=== PATIENT | female | born 1955 | race Caucasian/White ===

== ENCOUNTER 2019-08-19 10:00 | Inpatient (IN) | payer MEDICAID ==
[~2019-08-19] VITALS: Ht 167.6 cm; Wt 71.4 kg
[~2019-08-19 10:00] MED LIST: ASPI-231 PO; FLUO-125
[2019-08-19 10:41] LABS: Hematocrit 39.7 % (36.0-46.0); Hemoglobin 13.4 g/dL (12.2-16.2); Mean Corpuscular Hemoglobin 33.3 pg (28.0-32.0); Mean Corpuscular Hgb Conc. 33.7 g/dL (32.0-36.0); Mean Corpuscular Volume 98.6 fL (80.0-100.0); Platelet Count (auto) 299 10^3/uL (140-450); Red Blood Cells 4.02 10^6/uL (4.0-5.20); Red Cell Distribution Width 14.3 % (11.8-14.3); White Blood Cell 15.6 10^3/uL (4.4-10.8)
[2019-08-19 10:46] LABS: Calcium 8.8 mg/dL (8.5-10.1)
[2019-08-19 10:51] LABS: BUN/Creatinine Ratio 22.3; Bilirubin, Total 0.3 mg/dL (0.2-1.0); Total Protein 7.4 g/dL (6.4-8.2)
[2019-08-19 10:53] LABS: INR 0.94 (0.9-1.15); Partial Thromboplastin Time 23.4 sec (23.64-32.05)
[2019-08-19 10:55] LABS: Basophils % (manual) 0 (0.0-2.0); Blast Cells 0; Eosinophils % (manual) 0 (0-7); Metamyelocytes % 0; Myelocytes % 0; Promyelocytes % 0; Reactive Lymphocytes 0
[2019-08-19 11:26] LABS: Band Neutrophils % (manual) 1; Lymphocytes % (manual) 9 (10.0-50.0); Monocytes % (manual) 7 (0-12)
[2019-08-19] MEDS ORDERED: PROMETHAZINE HCL 25 MG/ML 1ML IV PRN (12:30)
[2019-08-19] MEDS ORDERED: LEVOFLOXACIN 500MG 100 ML IV ONE (12:30)
[2019-08-19] MEDS ORDERED: MORPHINE SULF INJ 2 MG/ML SYRINGE 1ML IV PRN (12:30)
[2019-08-19] MEDS ORDERED: LACTULOSE 20Gm/30ML SOLN PO PRN (12:30)
[2019-08-19] MEDS ORDERED: chlordiazePOXIDE HCL 5 MG CAP PO ONE (12:30)
[2019-08-19] MEDS ORDERED: ALBUTEROL SULF 2.5 MG/0.5ML(0.5%) NEB SOLN NEB PRN (12:30)
[2019-08-19] MEDS ORDERED: THIAMINE 100mg/ml INJ (200mg/2ml VIAL) IV ONE (12:30)
[2019-08-19] MEDS ORDERED: ACETAMINOPHEN 500 MG TAB PO PRN (12:30)
[2019-08-19] MEDS ORDERED: NITROGLYCERIN 0.4 MG SL TAB SL PRN (12:30)
[2019-08-19] MEDS ORDERED: hydrALAZINE HCL 20 MG/ML VL IV PRN (12:45)
[2019-08-19] MEDS ORDERED: CARVEDILOL 3.125 MG TAB PO ONE (12:45)
[2019-08-19] MEDS: SODIUM CHLORIDE 0.9% 1,000 ML IV SCH ×2 (13:12→23:00)
[2019-08-19] MEDS: CLINDAMYCIN 600MG IV 50 ML IV SCH ×2 (14:23→22:57)
--- NOTE | 2019-08-19 15:50 | NUR ---
Received report from ER Nurse. Waiting for patient to be transferred to Room 297B. Paged Dr. Everett.
--- NOTE | 2019-08-19 15:55 | NUR ---
Dr. Everett called back. made aware patient has no Diet order. I already got a report from ER Nurse, waiting for patient to be transferred to Room 297B. Dr. Everett ordered Regular Diet.
[2019-08-19 16:20] VITALS: BP 150/85
--- NOTE | 2019-08-19 16:20 | NUR ---
Left knee with ANALIA wrap, clean dry and intact. Patient stated she had left knee arthroscopy two days ago at surgical center in [place].
--- NOTE | 2019-08-19 16:20 | NUR ---
Telemetry admit from ER DANIEL AREVALO admitted to Telemetry unit after SBAR received. Patient oriented to Vera Krishnamurthy RN, unit, room, bed, and unit policies regarding patient care and visiting hours. Patient now on continuous telemetry monitoring, tele box # [id number] and telemetry reading on arrival to unit is 85. Patient placed on bedside oxygen at 4 LPM, weighed by bed scale and encouraged to call if she needs something. All questions and concerns addressed, patient verbalized understanding. Note: Patient is awake, oriented x4, wheezing noted. Bed side commode provided.
[2019-08-19 17:00] VITALS: BP 150/85
--- NOTE | 2019-08-19 17:00 | NUR ---
Patient has own medications from home at bedside. Explained to patient that own medications not allowed at bedside, if it's okay with her if I can take the medications to the Pharmacy and it will be returned to her on day of Discharge. Patient said she has a bottle of Oxycodone in her bag. Checked the POM, no bottle of Oxycodone included in the bag. Patient said she may have forgotten to bring it.
[2019-08-19] MEDS: methylPREDNISolone SOD SUCC 40 MG/ML VL IV SCH ×2 (17:27→23:01)
[2019-08-19] MEDS: traMADol HCL 50 MG TAB PO PRN (17:51)
[2019-08-19] MEDS: chlordiazePOXIDE HCL 25 MG CAP PO PRN (17:51)
--- NOTE | 2019-08-19 17:51 | NUR ---
Patient stated her pain level at 5/10 at this time. Patient refused Tylenol. Ultram PO given for pain.
--- NOTE | 2019-08-19 17:51 | NUR ---
Hand tremors noted. Librium PO given.
[2019-08-19] MEDS: chlordiazePOXIDE HCL 5 MG CAP PO SCH (18:00)
[2019-08-19] MEDS: IPRATROPIUM BROM 0.5 MG/2.5ML INH SOL NEB SCH (18:34)
[2019-08-19] MEDS: ALBUTEROL SULF 2.5 MG/0.5ML(0.5%) NEB SOLN NEB SCH (18:34)
[2019-08-19 22:35] VITALS: BP 154/88
[2019-08-19 22:39] VITALS: BP 154/88
[2019-08-19] MEDS: CARVEDILOL 3.125 MG TAB PO SCH (22:59)
[2019-08-20] MEDS: IPRATROPIUM BROM 0.5 MG/2.5ML INH SOL NEB SCH ×5 (00:36→23:56)
[2019-08-20] MEDS: ALBUTEROL SULF 2.5 MG/0.5ML(0.5%) NEB SOLN NEB SCH ×5 (00:37→23:56)
[2019-08-20 05:55] VITALS: BP 151/87
[2019-08-20] MEDS: CLINDAMYCIN 600MG IV 50 ML IV SCH ×2 (06:50→14:19)
[2019-08-20] MEDS: chlordiazePOXIDE HCL 5 MG CAP PO SCH ×5 (06:51→22:55)
[2019-08-20] MEDS: methylPREDNISolone SOD SUCC 40 MG/ML VL IV SCH ×3 (06:51→22:55)
--- NOTE | 2019-08-20 08:00 | NUR ---
Patient in bed, asleep, no acute distress noted. ANALIA wrap band on left knee clean, dry and intact.
[2019-08-20] MEDS: SODIUM CHLORIDE 0.9% 1,000 ML IV SCH ×2 (08:15→17:30)
[2019-08-20] MEDS ORDERED: CAR3125T PO (08:35)
[2019-08-20] MEDS ORDERED: TEMA30CA PO (08:35)
[2019-08-20] MEDS ORDERED: NAP500T PO (08:35)
[2019-08-20 09:00] VITALS: BP 168/111
[2019-08-20] MEDS: ENOXAPARIN SOD 40 MG/0.4 ML SYRINGE SC SCH (09:56)
[2019-08-20] MEDS: THIAMINE 100mg/ml INJ (200mg/2ml VIAL) IV SCH (09:56)
[2019-08-20] MEDS: CARVEDILOL 3.125 MG TAB PO SCH ×2 (09:57→22:56)
[2019-08-20] MEDS: PANTOPRAZOLE 40 MG TAB PO SCH (09:57)
[2019-08-20] MEDS ORDERED: LEVOFLOXACIN 500MG 100 ML IV SCH (10:00)
--- NOTE | 2019-08-20 12:00 | NUR ---
Patient awake, oriented x4, No acute distress noted.
[2019-08-20 13:00] VITALS: BP 151/116
[2019-08-20] MEDS ORDERED: LEVOFLOXACIN 250MG 50 ML IV ONE (15:15)
[2019-08-20] MEDS ORDERED: MULTIPLE VITAMINS W/ MINERALS TAB PO ONE (15:30)
[2019-08-20] MEDS ORDERED: amLODIPine BESYLATE 5 MG TAB PO ONE (15:30)
[2019-08-20] MEDS ORDERED: FOLIC ACID 1 MG TAB PO ONE (15:30)
[2019-08-20 17:00] VITALS: BP 132/75
--- NOTE | 2019-08-20 20:15 | NUR ---
Pt is resting in bed with resp rate even and unlabored. No s/s of any distress noted at this time. POC discussed with pt and pt verbalizes understanding. Bed is low, wheels are locked, and call light is with in reach.
[2019-08-20 22:00] VITALS: BP 124/67
[2019-08-21] MEDS: TEMAZEPAM 15 MG CAP PO PRN ×2 (00:18→22:50)
[2019-08-21] MEDS: traMADol HCL 50 MG TAB PO PRN ×3 (00:19→22:50)
[2019-08-21 05:00] VITALS: BP 148/89
[2019-08-21 05:46] LABS: Basophils # (auto) 0 uL; Basophils % (auto) 0.1 % (0.0-2.0); Eosinophils # (auto) 0 uL; Lymphocytes # (auto) 1.1 uL; Lymphocytes % (auto) 9.3 % (10.0-50.0); Mean Corpuscular Hemoglobin 33.4 pg (28.0-32.0); Mean Corpuscular Hgb Conc. 34.2 g/dL (32.0-36.0); Mean Corpuscular Volume 97.6 fL (80.0-100.0); Monocytes % (auto) 8.4 % (0.0-12.0); Neutrophils # (auto) 10.1 uL; Neutrophils % (auto) 82.2 % (37.0-80.0); Nucleated Red Blood Cells % 0.1 %; Platelet Count (auto) 280 10^3/uL (140-450); Red Blood Cells 3.58 10^6/uL (4.0-5.20); Red Cell Distribution Width 13.8 % (11.8-14.3); White Blood Cell 12.3 10^3/uL (4.4-10.8)
[2019-08-21] MEDS: chlordiazePOXIDE HCL 5 MG CAP PO SCH ×4 (06:08→22:51)
[2019-08-21 06:10] LABS: Albumin 2.8 g/dL (3.4-5.0); Calcium 8.4 mg/dL (8.5-10.1); Potassium 4.4 mmol/L (3.5-5.1)
[2019-08-21 06:14] LABS: BUN/Creatinine Ratio 38.5; Bilirubin, Total 0.3 mg/dL (0.2-1.0); Total Protein 5.9 g/dL (6.4-8.2)
[2019-08-21] MEDS: IPRATROPIUM BROM 0.5 MG/2.5ML INH SOL NEB SCH ×3 (06:26→19:56)
[2019-08-21] MEDS: ALBUTEROL SULF 2.5 MG/0.5ML(0.5%) NEB SOLN NEB SCH ×3 (06:26→19:56)
[2019-08-21] MEDS: SODIUM CHLORIDE 0.9% 1,000 ML IV SCH (07:55)
[2019-08-21 09:12] VITALS: BP 160/93
[2019-08-21] MEDS: methylPREDNISolone SOD SUCC 40 MG/ML VL IV SCH ×2 (09:12→22:49)
[2019-08-21] MEDS: THIAMINE 100mg/ml INJ (200mg/2ml VIAL) IV SCH (09:12)
[2019-08-21] MEDS: LEVOFLOXACIN 750MG 150 ML IV SCH (09:12)
[2019-08-21] MEDS: FOLIC ACID 1 MG TAB PO SCH (09:13)
[2019-08-21] MEDS: ENOXAPARIN SOD 40 MG/0.4 ML SYRINGE SC SCH (09:13)
[2019-08-21] MEDS: PANTOPRAZOLE 40 MG TAB PO SCH (09:13)
[2019-08-21] MEDS: MULTIPLE VITAMINS W/ MINERALS TAB PO SCH (09:14)
[2019-08-21] MEDS: amLODIPine BESYLATE 5 MG TAB PO SCH (09:15)
[2019-08-21] MEDS: CARVEDILOL 3.125 MG TAB PO SCH ×2 (09:15→22:50)
--- NOTE | 2019-08-21 10:20 | NUR ---
MIDLINE REMOVED FROM LEFT UPPER ARM PATIENT COMPLAINED OF BURNING WHEN FLUSHED. MIDLINE REMOVED CATHETER INTACT. NEW IV STARTED 22G IN LEFT FOREARM. PATIENT TOLERATED WELL Addendum: 08/21/19 at 1022 by JONEL CHUNG RN RN MIDLINE REMOVED FROM RIGHT UPPER ARM PATIENT COMPLAINED OF BURNING WHEN FLUSHED. MIDLINE REMOVED CATHETER INTACT. NEW IV STARTED 22G IN RIGHT FOREARM. PATIENT TOLERATED WELL
[2019-08-21 13:00] VITALS: BP 114/76
[2019-08-21 17:08] VITALS: BP 115/71
--- NOTE | 2019-08-21 19:25 | NUR ---
OPENING NOTE Pt is alert and awake x4. No S/S of SOB or distress. Bed is locked and in lowest position. Side rails are up x2. Call light is within reach and pt has been instructed to notify nurse when needed. POC has been discussed with pt and the pt has verbalized understanding.
[2019-08-21 22:00] VITALS: BP 104/57
[2019-08-21] MEDS: chlordiazePOXIDE HCL 25 MG CAP PO PRN (22:50)
[2019-08-21] MEDS: CLINDAMYCIN 600MG IV 50 ML IV SCH (22:51)
[2019-08-22] MEDS: IPRATROPIUM BROM 0.5 MG/2.5ML INH SOL NEB SCH ×3 (00:13→11:20)
[2019-08-22] MEDS: ALBUTEROL SULF 2.5 MG/0.5ML(0.5%) NEB SOLN NEB SCH ×3 (00:13→11:20)
[2019-08-22] MEDS: SODIUM CHLORIDE 0.9% 1,000 ML IV SCH ×2 (00:35→17:15)
[2019-08-22 05:53] VITALS: BP 135/80
[2019-08-22] MEDS: chlordiazePOXIDE HCL 5 MG CAP PO SCH ×2 (06:08→12:02)
[2019-08-22] MEDS: CLINDAMYCIN 600MG IV 50 ML IV SCH ×2 (06:09→12:01)
[2019-08-22 06:46] LABS: Red Cell Distribution Width 13.8 % (11.8-14.3)
[2019-08-22 06:48] LABS: Potassium 4.4 mmol/L (3.5-5.1)
[2019-08-22 06:49] LABS: Hematocrit 24.4 % (36.0-46.0); Hemoglobin 8.3 g/dL (12.2-16.2); Platelet Count (auto) 243 10^3/uL (140-450); Red Blood Cells 2.44 10^6/uL (4.0-5.20); White Blood Cell 11.9 10^3/uL (4.4-10.8)
[2019-08-22 06:59] LABS: Albumin 2.6 g/dL (3.4-5.0); BUN/Creatinine Ratio 46.7; Bilirubin, Total 0.1 mg/dL (0.2-1.0); Calcium 7.9 mg/dL (8.5-10.1); Magnesium 1.7 mg/dL (1.6-2.6); Phosphorus 3.7 mg/dL (2.5-4.90); Total Protein 4.9 g/dL (6.4-8.2)
[2019-08-22 08:00] VITALS: BP 119/68
[2019-08-22 08:02] LABS: Basophils % (manual) 0 (0.0-2.0); Blast Cells 0; Eosinophils % (manual) 0 (0-7); Metamyelocytes % 0; Myelocytes % 0; Promyelocytes % 0; Reactive Lymphocytes 0
[2019-08-22 09:00] VITALS: BP 119/68
[2019-08-22] MEDS: methylPREDNISolone SOD SUCC 40 MG/ML VL IV SCH (09:09)
[2019-08-22] MEDS: THIAMINE 100mg/ml INJ (200mg/2ml VIAL) IV SCH (09:09)
[2019-08-22] MEDS: LEVOFLOXACIN 750MG 150 ML IV SCH (09:10)
[2019-08-22] MEDS: ENOXAPARIN SOD 40 MG/0.4 ML SYRINGE SC SCH (09:10)
[2019-08-22] MEDS: MULTIPLE VITAMINS W/ MINERALS TAB PO SCH (09:10)
[2019-08-22] MEDS: CARVEDILOL 3.125 MG TAB PO SCH (09:11)
[2019-08-22] MEDS: FOLIC ACID 1 MG TAB PO SCH (09:11)
[2019-08-22] MEDS: PANTOPRAZOLE 40 MG TAB PO SCH (09:11)
[2019-08-22] MEDS: amLODIPine BESYLATE 5 MG TAB PO SCH (09:11)
[2019-08-22 10:39] LABS: Band Neutrophils % (manual) 2; Lymphocytes % (manual) 10 (10.0-50.0); Monocytes % (manual) 3 (0-12)
[2019-08-22 13:00] VITALS: BP 136/97
--- NOTE | 2019-08-22 14:50 | NUR ---
Nutrition Assessment Notes please see attached link for complete assessment Est. Needs BW 71 [id number] kcal (23-25 kcal/kgBW), 56-71 gms pro (0.8-1.0 gms/kgBW r/t elev RFT). Will continue to monitor pertinent labs and reassess nutrient need prn Addendum: 08/22/19 at [address] Amended: Links added.
[2019-08-22] MEDS ORDERED: CEPH-37 PO (15:49)
[2019-08-22] MEDS ORDERED: AML5T PO (15:49)
[2019-08-22] MEDS ORDERED: MULTTAB61 PO (15:49)
[2019-08-22] MEDS ORDERED: THIA50CA PO (15:49)
[2019-08-22] MEDS ORDERED: FOLITAB22 PO (15:49)
[2019-08-22] MEDS ORDERED: ALBUAER3 IN (15:49)
[2019-08-22] MEDS ORDERED: PRE5T PO (15:49)
[2019-08-22] MEDS ORDERED: METR500T14 PO (15:49)
[2019-08-22] MEDS ORDERED: IPRIH INH (15:49)
[2019-08-22 16:04] VITALS: BP 136/87
[2019-08-22 16:37] VITALS: BP 138/89
--- NOTE | 2019-08-22 17:28 | NUR ---
DISCHARGE NOTE PATIENT ALERT AND ORIENTED X4 ALL DISCHARGE INSTRUCTIONS GIVEN ALL QUESTIONS AND CONCERNS ADDRESSED AND ANSWERED. PATIENT VERBALIZED UNDERSTANDING. IV REMOVED USING [employer]SEPTIC TECHNIQUE CATHETER INTACT PRESSURE DRESSING APPLIED PATIENT TOLERATED WELL. TELE BOX REMOVED AND SENT TO ICU. PATIENT ASSISTED TO PERSONAL VEHICLE USING A WHEELCHAIR PATIENT DENIES ALL SOB DISTRESS AND PAIN
== END 2019-08-22 17:20 | disposition home or self-care (01) | DRG 720 ==
LOC: EDBD 10:00 → EDUNIT# 10:00 → ER 10:00 → TELE 10:01 → TELE-WESTW 16:43
PROVIDERS: ADMIT Internal Medicine; ATTEND Internal Medicine
DX: A41.9 Sepsis, unspecified organism (principal); J96.00 Acute respiratory failure, unspecified whether with hypoxia or hypercapnia; J69.0 Pneumonitis due to inhalation of food and vomit; I13.0 Hypertensive heart and chronic kidney disease with heart failure and stage 1 through stage 4 chronic kidney disease, or unspecified chronic kidney disease; I50.9 Heart failure, unspecified; I16.0 Hypertensive urgency; N18.9 Chronic kidney disease, unspecified; J44.1 Chronic obstructive pulmonary disease with (acute) exacerbation; K57.90 Diverticulosis of intestine, part unspecified, without perforation or abscess without bleeding; E78.5 Hyperlipidemia, unspecified; T78.3XXA Angioneurotic edema, initial encounter; Z88.0 Allergy status to penicillin; Z88.2 Allergy status to sulfonamides; Z88.8 Allergy status to other drugs, medicaments and biological substances; F10.129 Alcohol abuse with intoxication, unspecified
CPT/HCPCS: 36415; 71045; 80053; 82550; 83605; 83735; 83880; 84100; 84484; 85007; 85025; 85027; 85610; 85730; 87040; 93005; 93306; 93970; 94640; 94761; 96374; 99291; G0378; J1956; J3490

== ENCOUNTER 2019-09-03 14:28 | Inpatient (IN) | payer MEDICAID ==
[~2019-09-03] VITALS: Ht 167.6 cm; Wt 74.9 kg
[~2019-09-03 14:28] MED LIST changes: +ALBUAER3 IN; +AML5T PO; -ASPI-231 PO; +CEPH-37 PO; -FLUO-125; +FOLITAB22 PO; +IPRIH INH; +METR500T14 PO; +MULTTAB61 PO; +PRE5T PO; +THIA50CA PO
[2019-09-03 16:37] LABS: Basophils # (auto) 0.1 uL; Basophils % (auto) 1.2 % (0.0-2.0); Eosinophils # (auto) 0.3 uL; Eosinophils % (auto) 3.8 % (0.0-7.0); Hematocrit 33.1 % (36.0-46.0); Lymphocytes # (auto) 1.7 uL; Lymphocytes % (auto) 21.5 % (10.0-50.0); Mean Corpuscular Hemoglobin 33.5 pg (28.0-32.0); Mean Corpuscular Hgb Conc. 33.1 g/dL (32.0-36.0); Mean Corpuscular Volume 101.2 fL (80.0-100.0); Monocytes # (auto) 0.7 uL; Monocytes % (auto) 8.2 % (0.0-12.0); Neutrophils # (auto) 5.2 uL; Neutrophils % (auto) 65.3 % (37.0-80.0); Nucleated Red Blood Cells % 0.1 %; Platelet Count (auto) 388 10^3/uL (140-450); Red Blood Cells 3.27 10^6/uL (4.0-5.20); Red Cell Distribution Width 16.7 % (11.8-14.3)
[2019-09-03 16:48] LABS: Calcium 9.1 mg/dL (8.5-10.1); Chloride 104 mmol/L (98-107); Sodium 137 mmol/L (136-145)
[2019-09-03 17:08] LABS: Alanine Aminotransferase 115 U/L (13-56); Albumin 3.8 g/dL (3.4-5.0); Alkaline Phosphatase 75 U/L (45-117); Anion Gap 10 (5-15); Aspartate Aminotransferase 25 U/L (15-37); BUN/Creatinine Ratio 10.4; Bilirubin, Total 0.5 mg/dL (0.2-1.0); Blood Urea Nitrogen 14 mg/dL (7-18); Carbon Dioxide 23 mmol/L (21-32); GFR African American 51 mL/min; GFR Non-African American 42 mL/min; Glucose 110 mg/dL (74-106); Magnesium 2.2 mg/dL (1.6-2.6); Total Protein 7.6 g/dL (6.4-8.2)
[2019-09-03 20:07] LABS: INR 1.01 (0.9-1.15); Partial Thromboplastin Time 24.3 sec (23.64-32.05)
[2019-09-03] MEDS ORDERED: ALBUTEROL SULF 2.5 MG/0.5ML(0.5%) NEB SOLN NEB ONE (20:30)
[2019-09-03] MEDS ORDERED: IPRATROPIUM BROM 0.5 MG/2.5ML INH SOL NEB ONE (20:30)
[2019-09-03 21:20] LABS: Basophils # (auto) 0.1 uL; Eosinophils # (auto) 0.2 uL; Eosinophils % (auto) 2.9 % (0.0-7.0); Hematocrit 30.8 % (36.0-46.0); Hemoglobin 10.3 g/dL (12.2-16.2); Lymphocytes % (auto) 24.1 % (10.0-50.0); Mean Corpuscular Hemoglobin 33.1 pg (28.0-32.0); Mean Corpuscular Hgb Conc. 33.3 g/dL (32.0-36.0); Mean Corpuscular Volume 99.3 fL (80.0-100.0); Monocytes # (auto) 0.8 uL; Monocytes % (auto) 9.9 % (0.0-12.0); Neutrophils # (auto) 5.2 uL; Neutrophils % (auto) 62.1 % (37.0-80.0); Nucleated Red Blood Cells % 0.3 %; Platelet Count (auto) 327 10^3/uL (140-450); Red Cell Distribution Width 15.9 % (11.8-14.3); White Blood Cell 8.4 10^3/uL (4.4-10.8)
[2019-09-03 21:39] LABS: Albumin 3.6 g/dL (3.4-5.0); Calcium 8.5 mg/dL (8.5-10.1); Potassium 3.8 mmol/L (3.5-5.1)
[2019-09-03 21:43] LABS: BUN/Creatinine Ratio 11.4; Bilirubin, Total 0.6 mg/dL (0.2-1.0); Total Protein 7.1 g/dL (6.4-8.2)
[2019-09-04] MEDS ORDERED: SODIUM CHLORIDE 0.9% 1,000 ML IV ONE (00:45)
[2019-09-04] MEDS ORDERED: methylPREDNISolone SOD SUCC 125 MG/2 ML VL IV ONE (00:45)
[2019-09-04] MEDS ORDERED: LEVOFLOXACIN 500MG 100 ML IV ONE (00:45)
[2019-09-04] MEDS ORDERED: IPRATROPIUM BROM 0.5 MG/2.5ML INH SOL NEB ONE (00:45)
[2019-09-04] MEDS ORDERED: ALBUTEROL SULF 2.5 MG/0.5ML(0.5%) NEB SOLN NEB ONE (00:45)
[2019-09-04 01:18] LABS: Urine Bacteria NONE SEEN /hpf (None Seen); Urine Blood Negative /uL (Negative); Urine Hyaline Cast MOD /lpf (0 - 2); Urine Mucus FEW (None Seen); Urine Specific Gravity 1.018 (1.001-1.035); Urine WBC 16 /hpf (0 - 5)
[2019-09-04 01:37] LABS: Barbiturate Scree,Urine NEGATIVE (NEGATIVE); Benzodiazephine Screen, Urine POSITIVE (NEGATIVE); Cannabinoid Screen, Urine NEGATIVE (NEGATIVE); Cocaine Screen, Urine NEGATIVE (NEGATIVE); Opiate Scree,Urine NEGATIVE (NEGATIVE); Phencyclidine Screen, Urine NEGATIVE (NEGATIVE)
[2019-09-04 01:44] LABS: Amphetamine Screen, Urine POSITIVE (NEGATIVE)
[2019-09-04] MEDS ORDERED: ACETAMINOPHEN 325 MG TAB PO PRN (02:00)
[2019-09-04] MEDS ORDERED: ONDANSETRON HCL 4 MG/2 ML VIAL IV PRN (02:00)
[2019-09-04] MEDS ORDERED: DOCUSATE SOD 100 MG CAP PO PRN (02:00)
[2019-09-04 05:00] VITALS: BP 130/70
[2019-09-04] MEDS ORDERED: TRAZ100T2 PO (08:41)
[2019-09-04] MEDS ORDERED: THIA100T10 GT (08:41)
[2019-09-04] MEDS ORDERED: FLUO-125 PO (08:41)
[2019-09-04] MEDS ORDERED: AMLO5TAB15 PO (08:41)
[2019-09-04 09:00] VITALS: BP 145/78
[2019-09-04] MEDS: IPRATROPIUM BROM 0.5 MG/2.5ML INH SOL NEB PRN ×2 (09:14→19:09)
[2019-09-04] MEDS: ALBUTEROL SULF 2.5 MG/0.5ML(0.5%) NEB SOLN NEB PRN ×2 (09:14→19:09)
[2019-09-04] MEDS: LEVOFLOXACIN 750MG 150 ML IV SCH (10:00)
[2019-09-04] MEDS: HYDROcodone-ACET 5/325MG TAB PO PRN ×2 (11:36→23:34)
[2019-09-04] MEDS: LORazepam 0.5 MG TAB PO PRN ×2 (11:37→23:34)
[2019-09-04 12:55] VITALS: BP 145/78
[2019-09-04 13:00] VITALS: BP 134/72
[2019-09-04 17:00] VITALS: BP 120/72
[2019-09-04 22:00] VITALS: BP 118/66
[2019-09-05 05:21] VITALS: BP 120/79
[2019-09-05 05:36] LABS: Basophils # (auto) 0 uL; Basophils % (auto) 0.3 % (0.0-2.0); Eosinophils # (auto) 0 uL; Eosinophils % (auto) 0.3 % (0.0-7.0); Hematocrit 26.8 % (36.0-46.0); Hemoglobin 9.1 g/dL (12.2-16.2); Lymphocytes # (auto) 1.3 uL; Lymphocytes % (auto) 11.5 % (10.0-50.0); Mean Corpuscular Hemoglobin 33.8 pg (28.0-32.0); Mean Corpuscular Hgb Conc. 33.8 g/dL (32.0-36.0); Mean Corpuscular Volume 100.1 fL (80.0-100.0); Monocytes # (auto) 1.2 uL; Monocytes % (auto) 11.1 % (0.0-12.0); Neutrophils # (auto) 8.6 uL; Neutrophils % (auto) 76.8 % (37.0-80.0); Platelet Count (auto) 288 10^3/uL (140-450); Red Blood Cells 2.68 10^6/uL (4.0-5.20); White Blood Cell 11.1 10^3/uL (4.4-10.8)
[2019-09-05 06:02] LABS: Potassium 4.2 mmol/L (3.5-5.1)
[2019-09-05 06:32] LABS: Albumin 3.2 g/dL (3.4-5.0); Bilirubin, Total 0.3 mg/dL (0.2-1.0); Calcium 8.7 mg/dL (8.5-10.1); Magnesium 2.5 mg/dL (1.6-2.6); Total Protein 6.4 g/dL (6.4-8.2)
[2019-09-05 08:38] VITALS: BP 129/77
[2019-09-05] MEDS: LEVOFLOXACIN 750MG 150 ML IV SCH (10:24)
[2019-09-05 13:00] VITALS: BP 120/57
[2019-09-05] MEDS: LORazepam 0.5 MG TAB PO PRN (15:53)
[2019-09-05] MEDS: HYDROcodone-ACET 5/325MG TAB PO PRN (15:54)
[2019-09-05] MEDS: SODIUM CHLORIDE 0.9% 1,000 ML IV SCH (16:03)
[2019-09-05 17:00] VITALS: BP 144/83
[2019-09-05 22:00] VITALS: BP 114/61
[2019-09-05] MEDS: ALBUTEROL SULF 2.5 MG/0.5ML(0.5%) NEB SOLN NEB PRN (22:12)
[2019-09-05] MEDS: IPRATROPIUM BROM 0.5 MG/2.5ML INH SOL NEB PRN (22:12)
[2019-09-06] MEDS: LORazepam 0.5 MG TAB PO PRN ×2 (02:20→15:45)
[2019-09-06] MEDS: SODIUM CHLORIDE 0.9% 1,000 ML IV SCH (02:21)
[2019-09-06] MEDS: HYDROcodone-ACET 5/325MG TAB PO PRN ×2 (02:21→13:20)
[2019-09-06 05:34] VITALS: BP 119/71
[2019-09-06 09:00] VITALS: BP 134/70
[2019-09-06] MEDS ORDERED: DOXYCYCLINE 100 MG TAB/CAP PO ONE (11:15)
[2019-09-06 13:00] VITALS: BP 137/74
[2019-09-06] MEDS: LEVOFLOXACIN 750MG 150 ML IV SCH (13:15)
[2019-09-06 17:00] VITALS: BP 120/70
[2019-09-06] MEDS: IPRATROPIUM BROM 0.5 MG/2.5ML INH SOL NEB PRN (19:39)
[2019-09-06] MEDS: ALBUTEROL SULF 2.5 MG/0.5ML(0.5%) NEB SOLN NEB PRN (19:39)
[2019-09-06] MEDS: DOXYCYCLINE 100 MG TAB/CAP PO SCH (21:38)
[2019-09-06 22:00] VITALS: BP 102/62
[2019-09-07] MEDS: LORazepam 0.5 MG TAB PO PRN ×2 (01:20→10:35)
[2019-09-07] MEDS: HYDROcodone-ACET 5/325MG TAB PO PRN ×3 (01:20→14:56)
[2019-09-07 05:03] VITALS: BP 114/65
[2019-09-07 05:59] LABS: Basophils # (auto) 0.1 uL; Basophils % (auto) 1.2 % (0.0-2.0); Eosinophils # (auto) 0.3 uL; Eosinophils % (auto) 5.2 % (0.0-7.0); Hematocrit 27.5 % (36.0-46.0); Hemoglobin 9.2 g/dL (12.2-16.2); Lymphocytes # (auto) 1.8 uL; Lymphocytes % (auto) 27.6 % (10.0-50.0); Mean Corpuscular Hemoglobin 33.4 pg (28.0-32.0); Mean Corpuscular Hgb Conc. 33.5 g/dL (32.0-36.0); Mean Corpuscular Volume 99.7 fL (80.0-100.0); Monocytes # (auto) 0.8 uL; Monocytes % (auto) 11.4 % (0.0-12.0); Neutrophils # (auto) 3.6 uL; Neutrophils % (auto) 54.6 % (37.0-80.0); Platelet Count (auto) 262 10^3/uL (140-450); Red Blood Cells 2.76 10^6/uL (4.0-5.20); Red Cell Distribution Width 15.6 % (11.8-14.3); White Blood Cell 6.6 10^3/uL (4.4-10.8)
[2019-09-07 06:28] LABS: BUN/Creatinine Ratio 22.8; Calcium 8.4 mg/dL (8.5-10.1)
[2019-09-07 08:00] VITALS: BP 116/70
[2019-09-07 09:00] VITALS: BP_SYST 114; BP_SYST 133; BP_DIAS 71; BP_DIAS 82
[2019-09-07 09:04] VITALS: BP 106/61
[2019-09-07] MEDS: DOXYCYCLINE 100 MG TAB/CAP PO SCH (10:30)
[2019-09-07] MEDS: LEVOFLOXACIN 750MG 150 ML IV SCH (10:31)
[2019-09-07 13:00] VITALS: BP 137/79
[2019-09-07] MEDS ORDERED: LEVO500T21 PO (14:05)
[2019-09-07] MEDS ORDERED: DOXY-216 PO (14:06)
[2019-09-07 15:36] VITALS: BP 137/79
== END 2019-09-07 17:15 | disposition home or self-care (01) | DRG 137 ==
LOC: ER 14:28 → OVERFLOW 14:29 → WEST WING 09-04 03:43
PROVIDERS: ADMIT Hospitalist; ATTEND Internal Medicine Nephrology
DX: J15.6 Pneumonia due to other Gram-negative bacteria (principal); J96.01 Acute respiratory failure with hypoxia; R65.10 Systemic inflammatory response syndrome (SIRS) of non-infectious origin without acute organ dysfunction; N18.3 Chronic kidney disease, stage 3 (moderate); J44.0 Chronic obstructive pulmonary disease with (acute) lower respiratory infection; J20.9 Acute bronchitis, unspecified; E78.5 Hyperlipidemia, unspecified; F10.20 Alcohol dependence, uncomplicated; Y90.9 Presence of alcohol in blood, level not specified; F17.210 Nicotine dependence, cigarettes, uncomplicated; F15.10 Other stimulant abuse, uncomplicated; I12.9 Hypertensive chronic kidney disease with stage 1 through stage 4 chronic kidney disease, or unspecified chronic kidney disease; F32.9 Major depressive disorder, single episode, unspecified; Z80.9 Family history of malignant neoplasm, unspecified; Z83.3 Family history of diabetes mellitus; Z91.19 Patient's noncompliance with other medical treatment and regimen; Z88.8 Allergy status to other drugs, medicaments and biological substances; Z98.51 Tubal ligation status; Z88.0 Allergy status to penicillin; Z88.2 Allergy status to sulfonamides; Z88.6 Allergy status to analgesic agent; Z71.51 Drug abuse counseling and surveillance of drug abuser
CPT/HCPCS: 36415; 36600; 71045; 71046; 80048; 80053; 80307; 80320; 81001; 82805; 83605; 83735; 83880; 84100; 84484; 85025; 85379; 85610; 85730; 87040; 87070; 87077; 87081; 87205; 93005; 94640; 96365; 96375; G0378; J1956

== ENCOUNTER 2019-09-30 21:56 | Emergency (ER) | payer MEDICARE, MEDICAID ==
[~2019-09-30] VITALS: Ht 167.6 cm; Wt 72.6 kg
[~2019-09-30 21:56] MED LIST changes: -CEPH-37 PO; +DOXY-286 PO; +FLUO-125 PO; +LEVO500T21 PO; -METR500T14 PO; -MULTTAB61 PO; -PRE5T PO; -THIA50CA PO
[2019-09-30 22:21] VITALS: BP 123/77
[2019-10-01] MEDS ORDERED: ENOXAPARIN SOD 100 MG/1 ML SYRINGE SC ONE (00:09)
[2019-10-01 04:27] LABS: Urine Bacteria FEW /hpf (None Seen); Urine Blood Negative /uL (Negative); Urine Hyaline Cast FEW /lpf (0 - 2); Urine WBC 2 /hpf (0 - 5)
[2019-10-31] MEDS ORDERED: APIX5TAB PO (15:54)
[2019-10-31] MEDS ORDERED: DIPH25CA46 PO (15:54)
[2019-10-31] MEDS ORDERED: TRAZ-184 PO (15:54)
[2019-10-31] MEDS ORDERED: CAR3125T PO (15:54)
[2019-10-31] MEDS ORDERED: FLUO1TAB14 PO (15:54)
[2019-10-31] MEDS ORDERED: OXYC-113 PO (15:59)
== END 2019-10-01 02:06 | disposition home or self-care (01) ==
LOC: ER 21:57
DX: M79.605 Pain in left leg (principal)
CPT/HCPCS: 81001; 93971; 96372; 99284; J1650

== ENCOUNTER 2019-10-16 00:21 | Emergency (ER) | payer MEDICAID, MEDICARE ==
[~2019-10-16] VITALS: Ht 167.6 cm; Wt 74.8 kg
[2019-10-16] MEDS ORDERED: ENOXAPARIN SOD 80 MG/0.8ML SYRINGE SC ONE (01:15)
[2019-10-16 02:32] LABS: Basophils # (auto) 0.1 uL; Mean Corpuscular Hgb Conc. 32.9 g/dL (32.0-36.0); Monocytes # (auto) 1.1 uL; Neutrophils # (auto) 4.9 uL
[2019-10-16 02:33] LABS: Eosinophils # (auto) 0.5 uL; Hematocrit 29.9 % (36.0-46.0); Hemoglobin 9.8 g/dL (12.2-16.2); Lymphocytes # (auto) 2.1 uL; Lymphocytes % (auto) 24.4 % (10.0-50.0); Mean Corpuscular Volume 91.4 fL (80.0-100.0); Monocytes % (auto) 12.4 % (0.0-12.0); Neutrophils % (auto) 56.2 % (37.0-80.0); Platelet Count (auto) 616 10^3/uL (140-450); Red Blood Cells 3.27 10^6/uL (4.0-5.20); Red Cell Distribution Width 17.2 % (11.8-14.3); White Blood Cell 8.8 10^3/uL (4.4-10.8)
[2019-10-16 02:42] LABS: INR 1.08 (0.9-1.15); Partial Thromboplastin Time 28.1 sec (23.64-32.05)
[2019-10-16 02:49] LABS: Albumin 3.5 g/dL (3.4-5.0); Calcium 8.8 mg/dL (8.5-10.1); Potassium 3.8 mmol/L (3.5-5.1)
[2019-10-16 02:52] LABS: BUN/Creatinine Ratio 12.5; Bilirubin, Total 0.3 mg/dL (0.2-1.0); Total Protein 6.6 g/dL (6.4-8.2)
[2019-10-16 04:00] VITALS: BP 124/71
== END 2019-10-16 04:27 | disposition home or self-care (01) ==
LOC: EDBD 00:21 → ER 00:23
DX: I82.402 Acute embolism and thrombosis of unspecified deep veins of left lower extremity (principal); I12.9 Hypertensive chronic kidney disease with stage 1 through stage 4 chronic kidney disease, or unspecified chronic kidney disease; N18.9 Chronic kidney disease, unspecified; E78.5 Hyperlipidemia, unspecified; F17.210 Nicotine dependence, cigarettes, uncomplicated; Z88.0 Allergy status to penicillin; Z88.1 Allergy status to other antibiotic agents; Z88.2 Allergy status to sulfonamides; Z79.899 Other long term (current) drug therapy
CPT/HCPCS: 36415; 80053; 84484; 85025; 85610; 85730; 96372; 99283; J1650

== ENCOUNTER 2019-12-06 16:54 | Emergency (ER) | payer MEDICAID ==
[~2019-12-06] VITALS: Ht 167.6 cm; Wt 71.2 kg
[~2019-12-06 16:54] MED LIST changes: +CAR3125T PO; +DIPH25CA46 PO; -DOXY-286 PO; +FLUO1TAB14 PO; -LEVO500T21 PO; +OXYC-113 PO; +TRAZ-184 PO; +WARF5TAB71 PO
[2019-12-06 17:25] VITALS: BP 119/57
[2019-12-06] MEDS ORDERED: ENOXAPARIN SOD 100 MG/1 ML SYRINGE SC ONE (19:15)
[2019-12-06 20:38] LABS: Basophils # (auto) 0.1 uL; Hemoglobin 11.4 g/dL (12.2-16.2); Monocytes # (auto) 0.7 uL
[2019-12-06 20:40] LABS: Basophils % (auto) 0.9 % (0.0-2.0); Eosinophils # (auto) 0.5 uL; Lymphocytes # (auto) 1.9 uL; Lymphocytes % (auto) 25.5 % (10.0-50.0); Mean Corpuscular Hemoglobin 26.3 pg (28.0-32.0); Mean Corpuscular Hgb Conc. 31.6 g/dL (32.0-36.0); Mean Corpuscular Volume 83.2 fL (80.0-100.0); Monocytes % (auto) 9.5 % (0.0-12.0); Neutrophils # (auto) 4.4 uL; Neutrophils % (auto) 58.1 % (37.0-80.0); Platelet Count (auto) 344 10^3/uL (140-450); Red Blood Cells 4.33 10^6/uL (4.0-5.20); Red Cell Distribution Width 18.2 % (11.8-14.3); White Blood Cell 7.5 10^3/uL (4.4-10.8)
[2019-12-06 21:01] LABS: INR 3.44 (0.9-1.15); Partial Thromboplastin Time 48.9 sec (23.64-32.05)
[2019-12-06 22:35] LABS: Urine Bacteria NONE SEEN /hpf (None Seen); Urine Blood Negative /uL (Negative); Urine Specific Gravity 1.008 (1.001-1.035); Urine WBC 1 /hpf (0 - 5)
== END 2019-12-06 22:42 | disposition home or self-care (01) ==
LOC: ER 16:54
DX: I82.4Z2 Acute embolism and thrombosis of unspecified deep veins of left distal lower extremity (principal); R06.02 Shortness of breath; E78.5 Hyperlipidemia, unspecified; F17.210 Nicotine dependence, cigarettes, uncomplicated; I12.9 Hypertensive chronic kidney disease with stage 1 through stage 4 chronic kidney disease, or unspecified chronic kidney disease; N18.9 Chronic kidney disease, unspecified; Z88.0 Allergy status to penicillin; Z88.2 Allergy status to sulfonamides; Z88.8 Allergy status to other drugs, medicaments and biological substances; Z79.01 Long term (current) use of anticoagulants; Z79.899 Other long term (current) drug therapy
CPT/HCPCS: 36415; 81001; 85025; 85610; 85730; 93005; 93971

== ENCOUNTER 2021-07-20 00:41 | Emergency (ER) | payer MEDICAID ==
[~2021-07-20] VITALS: Ht 170.2 cm; Wt 70.3 kg
[~2021-07-20 00:41] MED LIST changes: +DIPH-599 PO; -DIPH25CA46 PO
[2021-07-20 00:44] VITALS: BP 180/98
[2021-07-20 02:52] LABS: Basophils # (auto) 0.1 10 ^3/uL (0-0.2); Basophils % (auto) 0.8 % (0.0-2.0); Eosinophils # (auto) 0.4 10 ^3/uL (0-0.8); Eosinophils % (auto) 4.3 % (0.0-7.0); Hematocrit 41.5 % (36.0-46.0); Lymphocytes # (auto) 2.5 10 ^3/uL (0.4-5.4); Lymphocytes % (auto) 24.8 % (10.0-50.0); Mean Corpuscular Hemoglobin 32.4 pg (28.0-32.0); Mean Corpuscular Hgb Conc. 33.8 g/dL (32.0-36.0); Mean Corpuscular Volume 95.9 fL (80.0-100.0); Monocytes % (auto) 10.2 % (0.0-12.0); Neutrophils # (auto) 6.1 10 ^3/uL (1.6-8.6); Neutrophils % (auto) 59.9 % (37.0-80.0); Red Blood Cells 4.32 10^6/uL (4.0-5.20); Red Cell Distribution Width 14.5 % (11.8-14.3); White Blood Cell 10.1 10^3/uL (4.4-10.8)
[2021-07-20 03:20] LABS: Albumin 4.1 g/dL (3.4-5.0); BUN/Creatinine Ratio 18.3; Calcium 9.4 mg/dL (8.5-10.1); Potassium 3.4 mmol/L (3.5-5.1)
[2021-07-20 03:22] LABS: Bilirubin, Total 0.4 mg/dL (0.2-1.0)
[2021-07-20 03:24] LABS: INR 1.05 (0.9-1.15); Partial Thromboplastin Time 28.8 sec (23.6-33.0)
== END 2021-07-20 05:30 | disposition home or self-care (01) ==
LOC: ER 00:42
DX: I82.4Z2 Acute embolism and thrombosis of unspecified deep veins of left distal lower extremity (principal); I12.9 Hypertensive chronic kidney disease with stage 1 through stage 4 chronic kidney disease, or unspecified chronic kidney disease; N18.9 Chronic kidney disease, unspecified; E78.5 Hyperlipidemia, unspecified; F17.210 Nicotine dependence, cigarettes, uncomplicated; Z79.899 Other long term (current) drug therapy; Z88.0 Allergy status to penicillin; Z88.2 Allergy status to sulfonamides; Z88.8 Allergy status to other drugs, medicaments and biological substances
CPT/HCPCS: 36415; 80053; 85025; 85610; 85730; 93970

== ENCOUNTER 2021-12-18 18:37 | Emergency (ER) | payer OTHER, MEDICAID ==
[~2021-12-18] VITALS: Ht 170.2 cm; Wt 74.8 kg
[2021-12-18 18:43] VITALS: BP 213/116
== END 2021-12-18 20:29 | disposition left against medical advice (07) ==
LOC: ER 18:38
DX: R22.42 Localized swelling, mass and lump, left lower limb (principal); Z53.21 Procedure and treatment not carried out due to patient leaving prior to being seen by health care provider

== ENCOUNTER → 2022-03-06 | Day surgery (SDC) | payer OTHER, MEDICAID ==
[2022-03-01 11:14] LABS: Basophils # (auto) 0.1 10 ^3/uL (0-0.2); Eosinophils # (auto) 0.4 10 ^3/uL (0-0.8); Eosinophils % (auto) 6.2 % (0.0-7.0); Hematocrit 36.9 % (36.0-46.0); Hemoglobin 12.6 g/dL (12.2-16.2); Lymphocytes # (auto) 1.5 10 ^3/uL (0.4-5.4); Lymphocytes % (auto) 26.1 % (10.0-50.0); Mean Corpuscular Hemoglobin 32.2 pg (28.0-32.0); Mean Corpuscular Hgb Conc. 34.2 g/dL (32.0-36.0); Mean Corpuscular Volume 94.3 fL (80.0-100.0); Monocytes # (auto) 0.6 10 ^3/uL (0-1.3); Monocytes % (auto) 9.5 % (0.0-12.0); Neutrophils # (auto) 3.4 10 ^3/uL (1.6-8.6); Neutrophils % (auto) 57.2 % (37.0-80.0); Nucleated Red Blood Cells % 0.1 %; Red Blood Cells 3.91 10^6/uL (4.0-5.20); Red Cell Distribution Width 13.6 % (11.8-14.3); White Blood Cell 5.9 10^3/uL (4.4-10.8)
[2022-03-01 11:28] LABS: INR 1.04 (0.9-1.15); Partial Thromboplastin Time 27.2 sec (23.6-33.0)
[2022-03-01 11:51] LABS: Albumin 3.6 g/dL (3.4-5.0); Calcium 8.7 mg/dL (8.5-10.1)
[2022-03-01 11:54] LABS: BUN/Creatinine Ratio 13.4; Bilirubin, Total 0.5 mg/dL (0.2-1.0)
[~2022-03-06] VITALS: Ht 167.6 cm; Wt 72.6 kg
[~2022-03-06] MED LIST changes: -ALBUAER3 IN; -AML5T PO; +APIX5TAB PO; -DIPH-599 PO; -FLUO-125 PO; -FLUO1TAB14 PO; -FOLITAB22 PO; -IPRIH INH; +LIDOCAINE VISCOUS 2% 15ML UD ONE; +SODIUM CHLORIDE LOCK 10 ML ONE; -WARF5TAB71 PO
[2022-03-06] MEDS: fentaNYL CITRATE 100 MCG/2 ML VL ONE ×2 (13:32→13:38)
[2022-03-06] MEDS: MIDAZOLAM HCL 5 MG/ML-1ML VIAL ONE ×2 (13:32→13:38)
[2022-03-06] MEDS: diphenhdrAMINE HCL 50 MG/1 ML VL ONE ×2 (13:32→13:38)
[2022-03-06 14:35] VITALS: BP 140/71
== END | disposition home or self-care (01) ==
LOC: GI 12:33
PROVIDERS: ATTEND Internal Medicine Gastroenterology
DX: R10.13 Epigastric pain (principal); K21.00 Gastro-esophageal reflux disease with esophagitis, without bleeding; K44.9 Diaphragmatic hernia without obstruction or gangrene; K29.90 Gastroduodenitis, unspecified, without bleeding; K29.50 Unspecified chronic gastritis without bleeding; K31.89 Other diseases of stomach and duodenum; I12.9 Hypertensive chronic kidney disease with stage 1 through stage 4 chronic kidney disease, or unspecified chronic kidney disease; N18.9 Chronic kidney disease, unspecified; F32.A Depression, unspecified; F44.9 Dissociative and conversion disorder, unspecified; F41.9 Anxiety disorder, unspecified; Z98.51 Tubal ligation status; Z98.890 Other specified postprocedural states; Z79.899 Other long term (current) drug therapy; Z88.0 Allergy status to penicillin; Z88.1 Allergy status to other antibiotic agents; Z20.822 Contact with and (suspected) exposure to COVID-19; Z80.42 Family history of malignant neoplasm of prostate; Z80.1 Family history of malignant neoplasm of trachea, bronchus and lung; Z80.8 Family history of malignant neoplasm of other organs or systems
CPT/HCPCS: 36415; 43239; 43450; 80053; 85025; 85610; 85730; 88305; 88312; 88342; J1200; J2250; J3010; J7030; U0003; 43248; 99152

== ENCOUNTER → 2022-03-19 | Outpatient (CLI) | payer OTHER ==
[~2022-03-19] MED LIST changes: -LIDOCAINE VISCOUS 2% 15ML UD ONE; -SODIUM CHLORIDE LOCK 10 ML ONE
[2022-03-19 11:36] LABS: Urine Bacteria FEW /hpf (None Seen); Urine Blood Negative /uL (Negative); Urine Specific Gravity 1.018 (1.001-1.035); Urine WBC 33 /hpf (0 - 5)
== END | disposition home or self-care (01) ==
LOC: LAB 11:14
PROVIDERS: ATTEND Internal Medicine
DX: N18.2 Chronic kidney disease, stage 2 (mild) (principal); R73.03 Prediabetes
CPT/HCPCS: 81001; 82043

== ENCOUNTER → 2022-07-22 | Outpatient (CLI) | payer OTHER, MEDICAID | END | disposition home or self-care (01) | LOC: LAB 07:14 | PROVIDERS: ATTEND Internal Medicine | DX: R19.7 Diarrhea, unspecified (principal) | CPT/HCPCS: 87493 ==

== ENCOUNTER 2022-08-02 11:39 | Day surgery (SDC) | payer OTHER, MEDICAID ==
[2022-07-31 11:14] LABS: Basophils # (auto) 0.1 10 ^3/uL (0-0.2); Basophils % (auto) 1.5 % (0.0-2.0); Eosinophils # (auto) 0.5 10 ^3/uL (0-0.8); Eosinophils % (auto) 6.4 % (0.0-7.0); Hematocrit 38.8 % (36.0-46.0); Lymphocytes # (auto) 2.1 10 ^3/uL (0.4-5.4); Lymphocytes % (auto) 26.5 % (10.0-50.0); Mean Corpuscular Hgb Conc. 33.5 g/dL (32.0-36.0); Mean Corpuscular Volume 101.4 fL (80.0-100.0); Monocytes # (auto) 0.7 10 ^3/uL (0-1.3); Monocytes % (auto) 8.4 % (0.0-12.0); Neutrophils # (auto) 4.6 10 ^3/uL (1.6-8.6); Neutrophils % (auto) 57.2 % (37.0-80.0); Nucleated Red Blood Cells % 0.1 %; Red Blood Cells 3.83 10^6/uL (4.0-5.20); Red Cell Distribution Width 14.5 % (11.8-14.3)
[2022-07-31 11:28] LABS: INR 1.01 (0.9-1.15); Partial Thromboplastin Time 26.5 sec (24.6-33.4)
[2022-07-31 12:04] LABS: Potassium 4.2 mmol/L (3.5-5.1)
[2022-07-31 12:13] LABS: Albumin 3.9 g/dL (3.4-5.0); BUN/Creatinine Ratio 19.2; Bilirubin, Total 0.6 mg/dL (0.2-1.0); Calcium 8.7 mg/dL (8.5-10.1); Total Protein 7.4 g/dL (6.4-8.2)
[~2022-08-02] VITALS: Ht 170.2 cm; Wt 74.8 kg
[~2022-08-02 11:39] MED LIST changes: +GABA400C PO; +LEVO25TA6 PO; +MELA3TAB27 PO; -OXYC-113 PO; +SODIUM CHLORIDE LOCK 10 ML ONE; -TRAZ-184 PO
[2022-08-02] MEDS: diphenhdrAMINE HCL 50 MG/1 ML VL ONE ×2 (14:09→14:13)
[2022-08-02] MEDS: fentaNYL CITRATE 100 MCG/2 ML VL ONE ×2 (14:09→14:13)
[2022-08-02] MEDS: MIDAZOLAM HCL 5 MG/ML-1ML VIAL ONE ×2 (14:09→14:13)
[2022-08-02 15:05] VITALS: BP 157/90
== END 2022-08-02 15:20 | disposition home or self-care (01) ==
LOC: GI 11:39
PROVIDERS: ATTEND Internal Medicine Gastroenterology
DX: Z09 Encounter for follow-up examination after completed treatment for conditions other than malignant neoplasm (principal); K57.92 Diverticulitis of intestine, part unspecified, without perforation or abscess without bleeding; K57.30 Diverticulosis of large intestine without perforation or abscess without bleeding; K64.0 First degree hemorrhoids; Z86.010 Personal history of colon polyps; D12.0 Benign neoplasm of cecum; D37.5 Neoplasm of uncertain behavior of rectum; I12.9 Hypertensive chronic kidney disease with stage 1 through stage 4 chronic kidney disease, or unspecified chronic kidney disease; N18.30 Chronic kidney disease, stage 3 unspecified; E03.9 Hypothyroidism, unspecified; Z79.899 Other long term (current) drug therapy; Z20.822 Contact with and (suspected) exposure to COVID-19; Z98.51 Tubal ligation status; Z88.0 Allergy status to penicillin; Z88.2 Allergy status to sulfonamides; Z87.891 Personal history of nicotine dependence
CPT/HCPCS: 36415; 45380; 80053; 85025; 85610; 85730; 88305; J1200; J2250; J3010; J7030; U0003

== ENCOUNTER → 2022-10-29 | Outpatient (CLI) | payer OTHER, MEDICAID ==
[~2022-10-29] MED LIST changes: -SODIUM CHLORIDE LOCK 10 ML ONE
[2022-10-29 14:20] LABS: Hematocrit 40.5 % (36.0-46.0); Hemoglobin 13.6 g/dL (12.2-16.2); Mean Corpuscular Hemoglobin 33.4 pg (28.0-32.0); Mean Corpuscular Hgb Conc. 33.5 g/dL (32.0-36.0); Mean Corpuscular Volume 99.7 fL (80.0-100.0); Red Blood Cells 4.06 10^6/uL (4.0-5.20); Red Cell Distribution Width 13.9 % (11.8-14.3); White Blood Cell 9.6 10^3/uL (4.4-10.8)
[2022-10-29 14:26] LABS: Basophils % (manual) 0 (0.0-2.0); Blast Cells 0; Myelocytes % 0; Promyelocytes % 0; Reactive Lymphocytes 0
[2022-10-29 14:38] LABS: Urine Bacteria NONE SEEN /hpf (None Seen); Urine Blood Negative /uL (Negative); Urine Specific Gravity 1.009 (1.001-1.035); Urine WBC 1 /hpf (0 - 5)
[2022-10-29 14:53] LABS: BUN/Creatinine Ratio 26.4; Calcium 9.3 mg/dL (8.5-10.1); Potassium 4.2 mmol/L (3.5-5.1)
[2022-10-29 15:48] LABS: Eosinophils % (manual) 1 (0-7); Lymphocytes % (manual) 9 (10.0-50.0); Monocytes % (manual) 8 (0-12)
[2022-10-29 15:49] LABS: Band Neutrophils % (manual) 5; Metamyelocytes % 1
[2022-10-29 16:00] LABS: Phosphorus 3.2 mg/dL (2.5-4.90)
[2022-10-30 21:05] LABS: Uric Acid 7.2 mg/dL (2.6-6.0)
== END | disposition home or self-care (01) ==
LOC: LAB 13:45
PROVIDERS: ATTEND Internal Medicine Nephrology
DX: E21.3 Hyperparathyroidism, unspecified (principal); E56.9 Vitamin deficiency, unspecified; R80.9 Proteinuria, unspecified
CPT/HCPCS: 36415; 80069; 81001; 82306; 82570; 83970; 84156; 84550; 85007; 85027

== ENCOUNTER → 2023-01-27 | Outpatient (CLI) | payer OTHER, MEDICAID | END | disposition home or self-care (01) | LOC: XYW 09:06 | PROVIDERS: ATTEND Internal Medicine | DX: R60.0 Localized edema (principal) | CPT/HCPCS: 93306 ==

== ENCOUNTER 2023-04-30 12:36 | Day surgery (SDC) | payer OTHER, MEDICAID ==
[2023-04-28 14:57] LABS: Basophils # (auto) 0.1 10 ^3/uL (0-0.2); Eosinophils # (auto) 0.4 10 ^3/uL (0-0.8); Eosinophils % (auto) 5.4 % (0.0-7.0); Hematocrit 38.9 % (36.0-46.0); Lymphocytes # (auto) 1.9 10 ^3/uL (0.4-5.4); Lymphocytes % (auto) 22.9 % (10.0-50.0); Mean Corpuscular Hemoglobin 31.8 pg (28.0-32.0); Mean Corpuscular Hgb Conc. 33.4 g/dL (32.0-36.0); Monocytes # (auto) 0.9 10 ^3/uL (0-1.3); Monocytes % (auto) 11.3 % (0.0-12.0); Neutrophils # (auto) 4.8 10 ^3/uL (1.6-8.6); Neutrophils % (auto) 59.4 % (37.0-80.0); Nucleated Red Blood Cells % 0.3 %; Red Blood Cells 4.09 10^6/uL (4.0-5.20); Red Cell Distribution Width 13.3 % (11.8-14.3); White Blood Cell 8.2 10^3/uL (4.4-10.8)
[2023-04-28 15:15] LABS: INR 1.07 (0.9-1.15); Partial Thromboplastin Time 31.8 SEC (24.5-34.5)
[2023-04-28 15:19] LABS: Potassium 4.2 mmol/L (3.5-5.1)
[2023-04-28 15:20] LABS: Albumin 3.9 g/dL (3.4-5.0); Calcium 8.9 mg/dL (8.5-10.1)
[2023-04-28 15:25] LABS: BUN/Creatinine Ratio 15.6 (10.0-20.0); Bilirubin, Total 0.8 mg/dL (0.2-1.0); Total Protein 7.5 g/dL (6.4-8.2)
[~2023-04-30] VITALS: Ht 170.2 cm; Wt 74.8 kg
[~2023-04-30 12:36] MED LIST changes: +GABA-339 PO; -GABA400C PO; +LOSA25TA15 PO; +MELO7.5T7 PO
[2023-04-30 12:57] VITALS: TEMP 97.6
[2023-04-30] MEDS ORDERED: SODIUM CHLORIDE LOCK 10 ML ONE (13:01)
[2023-04-30] MEDS: diphenhdrAMINE HCL 50 MG/1 ML VL ONE ×2 (13:59→14:03)
[2023-04-30] MEDS: MIDAZOLAM HCL 5 MG/ML-1ML VIAL ONE ×2 (13:59→14:06)
[2023-04-30] MEDS: fentaNYL CITRATE 100 MCG/2 ML VL ONE ×2 (13:59→14:06)
[2023-04-30 14:23] VITALS: O2SAT 91
[2023-04-30 14:59] VITALS: BP 120/64; PULSE 104; RESP 14; O2SAT 100
== END 2023-04-30 15:08 | disposition home or self-care (01) ==
LOC: GI 12:36
PROVIDERS: ATTEND Internal Medicine Gastroenterology
DX: Z12.11 Encounter for screening for malignant neoplasm of colon (principal); K63.5 Polyp of colon; K62.1 Rectal polyp; K57.30 Diverticulosis of large intestine without perforation or abscess without bleeding; K64.8 Other hemorrhoids; J44.9 Chronic obstructive pulmonary disease, unspecified; K21.9 Gastro-esophageal reflux disease without esophagitis; E03.9 Hypothyroidism, unspecified; I12.9 Hypertensive chronic kidney disease with stage 1 through stage 4 chronic kidney disease, or unspecified chronic kidney disease; N18.30 Chronic kidney disease, stage 3 unspecified; F41.8 Other specified anxiety disorders; Z80.0 Family history of malignant neoplasm of digestive organs; Z88.8 Allergy status to other drugs, medicaments and biological substances; Z88.0 Allergy status to penicillin; Z88.2 Allergy status to sulfonamides; Z87.01 Personal history of pneumonia (recurrent); Z87.891 Personal history of nicotine dependence; Z79.890 Hormone replacement therapy; Z79.899 Other long term (current) drug therapy; Z98.890 Other specified postprocedural states
CPT/HCPCS: 36415; 45380; 80053; 85025; 85610; 85730; 88305; J1200; J2250; J3010; J7030; 99152